=== PATIENT | male | born 1980 | race Caucasian/White ===

== ENCOUNTER 2020-12-10 21:49 | Inpatient (IN) | payer MEDICAID, SELFPAY ==
[~2020-12-10] VITALS: Ht 170.2 cm; Wt 86.2 kg
[2020-12-10 21:50] VITALS: BP 106/88
--- NOTE | 2020-12-10 21:50 | NUR ---
RAPID RESPONSE INITIATED, ERMD AT BEDSIDE WITH EMT, RT, AND PRIMARY NURSE. NARCAN GIVEN VIA IVP 2MG, ACCUCHECK 139.
--- NOTE | 2020-12-10 21:50 | NUR ---
PATIENT TAKEN TO BED 5 VIA GURNEY.
[2020-12-10] MEDS ORDERED: INTUBATION KIT MC ONE (21:53)
--- NOTE | 2020-12-10 21:55 | NUR ---
40 YO/M BIB friend, unresponsive, AOX0, GCS3 no response to painful stimuli. Patient is PERRL. Patient present tachycardic, pulse present +2, breathing shallow, labored, bradypnea, lung sounds clear, chest expansion symmetrical. Bowel sounds present. No wounds noted. ERMD, and ALPINE PATROLLER at bedside for patient care. PMH: unable to obtain Allergies: unable to obtain
[2020-12-10] MEDS ORDERED: LORazepam 2 MG/ML VIAL ONE (21:59)
[2020-12-10] MEDS ORDERED: fentaNYL citrate 0.05 MG/ML VIAL ONE (22:00)
[2020-12-10] MEDS ORDERED: PROPOFOL 1000 MG/100 ML PREMIX 100 ML IV ONE ×2 (22:01→22:25)
[2020-12-10] MEDS ORDERED: NALOXONE PFS 2 MG/2 ML SYR IVP ONE ×2 (22:15)
[2020-12-10] MEDS ORDERED: NACL 0.9% 1,000 ML IV ONE (22:15)
[2020-12-10] MEDS ORDERED: fentaNYL citrate 0.05 MG/ML VIAL IVP ONE (22:25)
[2020-12-10] MEDS ORDERED: LORazepam 2 MG/ML VIAL IVP ONE (22:25)
--- NOTE | 2020-12-10 22:42 | NUR ---
PATIENT RETURNED FROM CT VIA GURNEY. RT AT BEDSIDE.
[2020-12-10 23:10] VITALS: BP 107/63
[2020-12-10 23:17] LABS: BASOPHILS % (AUTO) 0.4 % (0.0-2.0); EOSINOPHILS # (AUTO) 0.1 K/uL (0-0.4); HEMATOCRIT 46.4 % (36-52); HEMOGLOBIN 15.3 g/dL (12.0-18.0); LYMPHOCYTES % (AUTO) 43.4 % (20.5-51.1); MEAN CORPUSCULAR HEMOGLOBIN 29 pg (27-31); MEAN CORPUSCULAR HGB CONC 33 g/dL (33-37); MEAN CORPUSCULAR VOLUME 89.2 fL (80-94); MONOCYTES # (AUTO) 0.6 K/uL (0.8-1.0); MONOCYTES % (AUTO) 6.8 % (1.7-9.3); NEUTROPHILS # (AUTO) 4.4 K/uL (1.8-7.7); NEUTROPHILS % (AUTO) 48.4 % (42.2-75.2); PLATELET COUNT (AUTO) 295 K/uL (140-450); RED CELL DISTRIBUTION WIDTH 13.5 % (11.6-13.7); WHITE BLOOD COUNT (AUTO) 9.2 K/uL (4.8-10.8)
[2020-12-10 23:29] LABS: BARBITURATE, URINE NEGATIVE ng/ml (NEG <=200); BENZODIAZEPINE, URINE NEGATIVE ng/mL (NEG <=200); CANNABINOID, URINE NEGATIVE ng/mL (NEG <=50); COCAINE, URINE POSITIVE ng/mL (NEG <=300); OPIATE, URINE NEGATIVE ng/mL (NEG <=2000); PHENCYCLIDINE SCREEN,URINE NEGATIVE ng/mL (NEG <=25)
[2020-12-10 23:31] LABS: ACETAMINOPHEN 1.2 ug/ml (10-30)
[2020-12-10 23:33] LABS: ALBUMIN 3.7 g/dL (3.4-5.0); ANION GAP 14.7 (8-16); CREATININE 1.3 mg/dL (0.6-1.3); POTASSIUM 3.7 mmol/L (3.5-5.1); SALICYLATE < 2.8 mg/dL (2.8-20.0); TOTAL BILIRUBIN 0.5 mg/dL (0.0-1.0)
--- NOTE | 2020-12-10 23:43 | NUR ---
UNABLE TO COLLECT SPUTUM SAMPLE AT THIS TIME. PT HAS NO SECRETIONS
[2020-12-11] VITALS (36 sets, daily range): BP systolic 100–144; BP diastolic 49–83
--- NOTE | 2020-12-11 00:15 | NUR ---
Patient laying in bed, locked in lowest position, x2 side rails up for patient safety. VSS. Daughter at bedside.
[2020-12-11] MEDS ORDERED: ONDANSETRON 4 MG/2 ML VIAL IM/IVP PRN (00:30)
[2020-12-11] MEDS ORDERED: DOCUSATE SODIUM 100 MG GELCAP PO PRN (00:30)
[2020-12-11] MEDS ORDERED: MAG SULF 2000 MG/WATER PREMIX 50 ML IV PRN (00:30)
[2020-12-11] MEDS ORDERED: LORazepam 2 MG/ML VIAL IM/IVP PRN (00:30)
[2020-12-11] MEDS ORDERED: ACETAMINOPHEN 325 MG TAB PO PRN (00:30)
[2020-12-11] MEDS ORDERED: POTASSIUM CHLORIDE 40 MEQ, LIDOCAINE MPF 1% 25 MG in NACL 0.9% 250 ML IV PRN (00:30)
[2020-12-11] MEDS ORDERED: MORPHINE SULFATE 2 MG/ML SYR IVP PRN (00:30)
[2020-12-11] MEDS ORDERED: SODIUM PHOS / POTASSIUM PHOS 1 PKT PDR PO PRN (00:30)
[2020-12-11 01:13] LABS: MAGNESIUM 2.3 mg/dL (1.8-2.4); PHOSPHORUS 5.5 mg/dL (2.5-4.9)
[2020-12-11] MEDS: PANTOPRAZOLE 40 MG INJ VIAL IVP SCH ×2 (02:03→09:43)
[2020-12-11] MEDS: NACL 0.9% 1,000 ML IV SCH ×2 (03:35→17:15)
--- NOTE | 2020-12-11 04:12 | NUR ---
Nallely sample collected from NARES and sent to lab.
--- NOTE | 2020-12-11 07:09 | NUR ---
Report called to CHARISMA Galicia for transfer of care to ICU.
--- NOTE | 2020-12-11 07:10 | NUR ---
Report given to CHARISMA Yin for transfer of care.
--- NOTE | 2020-12-11 08:09 | NUR ---
Patient will be admitted to care of KENIA GATES. Admited to ICU. Will go to room 01. Belongings list completed. Report to AMAYA.
--- NOTE | 2020-12-11 08:10 | NUR ---
PRIOR TO PATIENT ARRIVAL, RECEIVED REPORT FROM ED NURSE. PT RESTING IN BED. RASS -3. PT VENTED WITH ETT AT 7.5CM. FIO2 AT 28%, R 14, TV 500, PEEP 5. RESPIRATIONS EVEN AND UNLABORED WITH NO SOB OR RESPIRATORY DISTRESS. SKIN WARM AND DRY TO TOUCH. IV SITES IN RAC 18G, LAC 20G, AND L HAND 20G SALINE LOCKED IS CLEAN, DRY AND INTACT. AC 18G IS INFUSING PROP AT 25MCG AND LAC 20G IS INFUSING NS AT 60ML. PT HAS WARREN DRAINING VIA GRAVITY. OGTUBE IN PLACE. MRSA SWAB COLLECTED AND SENT TO LAB. VITAL SIGNS OBTAINED. SAFETY MEASURES IN PLACE. WILL CONTINUE TO MONITOR
--- NOTE | 2020-12-11 08:12 | NUR ---
patient transferred to icu from ed - pt tolerated well, no distress noted, pt remained on vent throughout transfer and into icu.
[2020-12-11 08:25] LABS: BASOPHILS % (AUTO) 0.3 % (0.0-2.0); EOSINOPHILS # (AUTO) 0.1 K/uL (0-0.4); HEMATOCRIT 43.3 % (36-52); HEMOGLOBIN 14.5 g/dL (12.0-18.0); LYMPHOCYTES # (AUTO) 3.1 K/uL (2.0-11.5); LYMPHOCYTES % (AUTO) 28.7 % (20.5-51.1); MEAN CORPUSCULAR HEMOGLOBIN 30 pg (27-31); MEAN CORPUSCULAR HGB CONC 34 g/dL (33-37); MEAN CORPUSCULAR VOLUME 87.8 fL (80-94); MONOCYTES # (AUTO) 0.7 K/uL (0.8-1.0); PLATELET COUNT (AUTO) 254 K/uL (140-450); RED BLOOD CELL COUNT(AUTO) 4.93 MIL/uL (4.20-6.10); WHITE BLOOD COUNT (AUTO) 10.9 K/uL (4.8-10.8)
[2020-12-11 08:36] LABS: ANION GAP 7.4 (8-16); CARBON DIOXIDE 27.9 mmol/L (21-32); CREATININE 1.1 mg/dL (0.6-1.3); POTASSIUM 4.3 mmol/L (3.5-5.1)
[2020-12-11] MEDS ORDERED: PROPOFOL 1000 MG/100 ML PREMIX 100 ML IV PRN (09:00)
[2020-12-11] MEDS ORDERED: chlordiazePOXIDE 25 MG CAP GT SCH (09:00)
--- NOTE | 2020-12-11 09:00 | NUR ---
PT DAUGHTERS AT BEDSIDE. HISTORY OBTAINED VIA YENNY. DAUGHTERS UPDATED ON PATIENT CONDITION. SAFETY MEASURES IN PLACE. WILL CONTINUE TO MONITOR
[2020-12-11] MEDS: MULTIVITAMIN 1 TAB GT SCH (09:42)
[2020-12-11] MEDS: THIAMINE 100 MG TAB GT SCH (09:43)
[2020-12-11] MEDS: FOLIC ACID 1 MG TAB GT SCH (09:46)
[2020-12-11] MEDS ORDERED: HALOPERIDOL IM 5 MG/ML VIAL IM PRN (09:55)
--- NOTE | 2020-12-11 10:01 | NUR ---
DR. REES AT BEDSIDE ASSESSING PATIENT
[2020-12-11] MEDS ORDERED: DEXMEDETOMIDINE HCL 400 MCG in NACL 0.9% 96 ML IV PRN (10:15)
--- NOTE | 2020-12-11 10:46 | NUR ---
PATIENT HAS BEEN SCREENED AND CATEGORIZED MODERATE NUTRITION RISK. PATIENT WILL BE SEEN WITHIN 3-5 DAYS OF ADMISSION. 12/13/20-12/15/20 SHERRIE SALVADOR MS, RDN Addendum: 12/11/20 at [address] DISREGARD PREVIOUS NOTE PATIENT HAS BEEN SCREENED AND CATEGORIZED HIGH NUTRITION RISK. PATIENT WILL BE SEEN WITHIN 1-2 DAYS OF ADMISSION. 12/11/20-12/13/20 SHERRIE SALVADOR MS, RDN
--- NOTE | 2020-12-11 13:15 | NUR ---
DAUGHTER CALLED AND WANTED UPDATE. UPDATE GIVEN. WILL CONTINUE TO MONITOR
--- NOTE | 2020-12-11 14:35 | NUR ---
PATIENT RESTING IN BED. NO SIGNS OF DISTRESS AT THIS TIME. PT ON 4L NC SATURATING AT 94%. SAFETY MEASURES IN PLACE. WILL CONTINUE TO MONITOR
--- NOTE | 2020-12-11 14:45 | NUR ---
DR. ASHLEY AT BEDSIDE ASSESSING PATIENT. ORDERS RECEIVED. SAFETY MEASURES IN PLACE. WILL CONTINUE TO MONITOR
--- NOTE | 2020-12-11 15:30 | NUR ---
DAUGHTER YENNY CALLED AND WANTED AN UPDATE. UPDATE GIVEN. PER YENNY, HER CORRECT PHONE NUMBER IS [phone]. SAFETY MEASURES IN PLACE. WILL CONTINUE TO MONITOR
--- NOTE | 2020-12-11 16:07 | NUR ---
DAUGHTERS AT BEDSIDE VISITING PATIENT. SAFETY MEASURES IN PLACE. WILL CONTINUE TO MONITOR
--- NOTE | 2020-12-11 17:16 | NUR ---
ADMINISTERED SCHED MED PRESCRIBED PER MD ORDER. PT TOLERATED WELL. SAFETY MEASURES IN PLACE. WILL CONTINUE TO MONITOR
--- NOTE | 2020-12-11 18:05 | NUR ---
PT DOWNGRADED FROM ICU TO TELE. NO SIGNS OF DISTRESS. WILL CONTINUE TO MONITOR
--- NOTE | 2020-12-11 19:15 | NUR ---
ENDORSED AT BEDSIDE TO NIGHTSHIFT FOR CONTINUITY OF CARE
--- NOTE | 2020-12-11 20:00 | NUR ---
RECEIVED REPORT FROM DAY RN REGARDING THE PATIENT FOR CONTINUITY OF CARE. RECEIVED PT ASLEEP BUT EASY TO AROUSE. FAMILY AT THE BEDSIDE. NOT IN ANY DISTRESS AND NO COMPLAIN AT THIS TIME. IVF INFUSING ORDERED. FALL PRECAUTION IMPLEMENTED. INSTRUCTED TO CALL FOR ASSISTANCE AT ALL TIMES. PT VERBALIZED UNDERSTANDING WITH THE POC.CALL LIGHT WITHIN REACH. WILL CONTINUE POC AND MONITORING.
--- NOTE | 2020-12-11 22:00 | NUR ---
PATIENT SLEEPING AT THIS TIME. NOT IN ANY DISTRESS AND NO COMPLAIN. WILL CONTINUE TO MONITOR THE PT.
[2020-12-12] VITALS: BP 111/61
--- NOTE | 2020-12-12 | NUR ---
PATIENTS VITAL SIGNS STABLE, AFEBRILE, SATING 97% ON 3L/NC. SINUS RHYTHM ON ORCHARD SPRAYER, HR-84. NO COMPLAIN OF PAIN AT THIS TIME. CALL LIGHT WITHIN REACH.
--- NOTE | 2020-12-12 02:00 | NUR ---
PATIENT SLEEPING AT THIS TIME. NOT IN ANY DISTRESS AND NO COMPLAIN. WILL CONTINUE TO MONITOR THE PT.
[2020-12-12 04:00] VITALS: BP 105/55
--- NOTE | 2020-12-12 04:00 | NUR ---
PATIENT VITAL SIGNS STABLE, AFEBRILE, SATING 99% ON 2L/NC. NO COMPLAIN OF PAIN AT THIS TIME. SR ON PRECISION AIRCRAFT STRUCTURE ASSEMBLER, HR-77. CALL LIGHT WITHIN REACH.
--- NOTE | 2020-12-12 06:28 | NUR ---
PATIENT STABLE. NO ACUTE EVENT THROUGHOUT THE NIGHT. NO COMPLAIN AT THIS TIME. NOT IN ANY DISTRESS. ALL NEEDS ATTENDED. WILL ENDORSE THE PATIENT TO THE ONCOMING RN FOR CONTINUITY OF CARE. CALL LIGHT WITHIN REACH.
[2020-12-12 06:39] LABS: BASOPHILS % (AUTO) 0.2 % (0.0-2.0); EOSINOPHILS % (AUTO) 0.1 % (0.0-4.0); HEMATOCRIT 42.5 % (36-52); HEMOGLOBIN 14.2 g/dL (12.0-18.0); LYMPHOCYTES # (AUTO) 1.3 K/uL (2.0-11.5); LYMPHOCYTES % (AUTO) 10.9 % (20.5-51.1); MEAN CORPUSCULAR HEMOGLOBIN 30 pg (27-31); MEAN CORPUSCULAR HGB CONC 33 g/dL (33-37); MEAN CORPUSCULAR VOLUME 88.1 fL (80-94); MONOCYTES # (AUTO) 0.8 K/uL (0.8-1.0); MONOCYTES % (AUTO) 6.4 % (1.7-9.3); NEUTROPHILS % (AUTO) 82.4 % (42.2-75.2); PLATELET COUNT (AUTO) 247 K/uL (140-450); RED BLOOD CELL COUNT(AUTO) 4.82 MIL/uL (4.20-6.10); RED CELL DISTRIBUTION WIDTH 13.7 % (11.6-13.7); WHITE BLOOD COUNT (AUTO) 12.1 K/uL (4.8-10.8)
[2020-12-12 06:49] LABS: ANION GAP 9.9 (8-16); CARBON DIOXIDE 25.6 mmol/L (21-32); CREATININE 0.9 mg/dL (0.6-1.3); POTASSIUM 4.5 mmol/L (3.5-5.1)
[2020-12-12 06:55] LABS: MAGNESIUM 1.9 mg/dL (1.8-2.4); PHOSPHORUS 2.9 mg/dL (2.5-4.9)
--- NOTE | 2020-12-12 07:14 | NUR ---
ENDORSED PATIENT TO DAY CHARISMA CONDE FOR CONTINUITY OF CARE. PATIENT STABLE. SIGNING OFF.
--- NOTE | 2020-12-12 07:19 | NUR ---
RECEIVED BEDSIDE REPORT FROM NIGHTSHIFT NURSE. PT RESTING IN BED, ABLE TO MAKE NEEDS KNOWN. RESPIRATIONS EVEN AND UNLABORED WITH NO SOB OR RESPIRATORY DISTRESS. SKIN WARM AND DRY TO TOUCH. SAFETY MEASURES IN PLACE, WILL CONTINUE TO MONITOR
[2020-12-12 08:00] VITALS: BP 102/54
[2020-12-12] MEDS: FOLIC ACID 1 MG TAB GT SCH (08:51)
[2020-12-12] MEDS: PANTOPRAZOLE 40 MG INJ VIAL IVP SCH (08:52)
[2020-12-12] MEDS: THIAMINE 100 MG TAB GT SCH (08:52)
[2020-12-12] MEDS: MULTIVITAMIN 1 TAB GT SCH (08:52)
[2020-12-12] MEDS: NACL 0.9% 1,000 ML IV SCH (09:02)
--- NOTE | 2020-12-12 09:02 | NUR ---
ADMINISTERED SCHED MEDS PRESCRIBED PER MD ORDER. PT TOLERATED WELL. SAFETY MEASURES IN PLACE. WILL CONTINUE TO MONITOR
--- NOTE | 2020-12-12 10:45 | NUR ---
PT ASLEEP IN BED. RESPONSIVE TO VERBAL AND TACTILE STIMULI. NO SIGNS OF DISTRESS. SAFETY MEASURES IN PLACE. WILL CONTINUE TO MONITOR
[2020-12-12 12:00] VITALS: BP 114/60
--- NOTE | 2020-12-12 12:04 | NUR ---
VITAL SIGNS OBTAINED. PT STABLE AT THIS TIME. GF AT BEDSIDE. SAFETY MEASURES IN PLACE. WILL CONTINUE TO MONITOR
--- NOTE | 2020-12-12 14:05 | NUR ---
PT RESTING IN BED. WITH DAUGHTERS AT BEDSIDE. NO SIGNS OF DISTRESS AT THIS TIME. SAFETY MEASURES IN PLACE. WILL CONTINUE TO MONITOR
--- NOTE | 2020-12-12 15:45 | NUR ---
PT ACCIDENTLY PULLED OUT INTACT IV IN R HAND 20G AND RAC 18G WHEN TURNING IN BED AND REPOSITIONING SELF. PT HAS LAC 20G DRY, INTACT, AND CLEAN. SAFETY MEASURES IN PLACE. WILL CONTINUE TO MONITOR
[2020-12-12 16:00] VITALS: BP 99/57
[2020-12-12] MEDS: chlordiazePOXIDE 25 MG CAP PO SCH (17:00)
--- NOTE | 2020-12-12 17:12 | NUR ---
PT ASLEEP IN BED. RESPONSIVE TO VERBAL AND TACTILE STIMULI. NO SIGNS OF DISTRESS. SAFETY MEASURES IN PLACE. WILL CONTINUE TO MONITOR
--- NOTE | 2020-12-12 19:35 | NUR ---
ENDORSED TO NIGHTSHIFT NURSE AT BEDSIDE FOR CONTINUITY OF CARE.
[2020-12-12 20:07] VITALS: BP 107/66
--- NOTE | 2020-12-12 20:10 | NUR ---
RECEIVED REPORT OF PT IN STABLE CONDITION.RESP.UNLABORED W/1L O2/NC.IVF INFUSING WELL.CALL LIGHT WITHIN REACH.FAMILY AT BEDSIDE.DENIED ANY PAIN AND/OR DISCOMFORT.F/C PATENT AND DRAINING YELLOW COLOR URINE.WILL CONTINUE MONITORING.
--- NOTE | 2020-12-12 20:25 | NUR ---
REPORT GIVEN TO Lis ZAFAR.PT'S CONDITION IS STABLE.
--- NOTE | 2020-12-12 20:30 | NUR ---
ASSUMED CARE OF THE PATIENT FROM CHARISMA AGUILAR. PATIENT ASLEEP BUT EASY TO AROUSE AND AT THE BEDSIDE. NOT IN ANY DISTRESS OR PAIN AT THIS TIME. INSTRUCTED TO CALL IF HE NEEDS ANYTHING AND VERBALIZED UNDERSTANDING. CALL LIGHT WITHIN REACH. WILL CONTINUE POC.
--- NOTE | 2020-12-12 22:37 | NUR ---
PATIENT IV ON THE LEFT FOREARM CAME OUT ACCIDENTALLY PER PATIENT WHO IS AT THE BEDSIDE. DC/D IV, CANNULA INTACT. NO HEMATOMA OR FURTHER BLEEDING NOTED. TRIED TO PLACE A NEW IV TWICE BUT PATIENT VEIN KEEPS ON COLLAPSING DESPITE GOOD BLOOD RETURN. PATIENT REFUSED TO PLACE AN IV AND STATED HE DOESN'T NEED IT. EXPLAINED TO THE PATIENT THE IMPORTANCE OF HAVING AN IV IN CASE OF EMERGENCY BUT STILL REFUSED. WILL TRY AGAIN LATER.
[2020-12-13] VITALS: BP 112/75
--- NOTE | 2020-12-13 | NUR ---
PATIENT VITAL SIGNS STABLE, AFEBRILE, SATING 95% ON RA. SINUS ARRHYTHMIA ON TELE MONITOR, HR-70. NO COMPLAIN OF ANY PAIN. AT THE BEDSIDE. CALL LIGHT WITHIN REACH.
--- NOTE | 2020-12-13 02:00 | NUR ---
PATIENT ASLEEP AT THIS TIME. VISIBLE CHEST RISE AND FALL NOTED. NO COMPLAIN AND NOT IN DISTRESS AT THIS TIME. SAFETY MEASURES IN PLACED.
[2020-12-13] MEDS: NACL 0.9% 1,000 ML IV SCH (02:30)
[2020-12-13 04:00] VITALS: BP 119/72
--- NOTE | 2020-12-13 04:35 | NUR ---
PATIENTS VITALS SIGNS STABLE, AFEBRILE, SATING 96% ON RA. NO COMPLAIN OF PAIN AND NOT IN ANY DISTRESS. PATIENT REQUESTING TO DC HIS WARREN CATHETER. CALLED DR AQUINO AND MADE AWARE OF THE PATIENT REQUEST. AWAITING FOR MD TO CALL BACK OR RESPOND.
[2020-12-13 05:14] LABS: BASOPHILS % (AUTO) 0.2 % (0.0-2.0); EOSINOPHILS # (AUTO) 0.1 K/uL (0-0.4); EOSINOPHILS % (AUTO) 1.5 % (0.0-4.0); HEMATOCRIT 43.9 % (36-52); HEMOGLOBIN 14.8 g/dL (12.0-18.0); LYMPHOCYTES # (AUTO) 1.8 K/uL (2.0-11.5); LYMPHOCYTES % (AUTO) 18.7 % (20.5-51.1); MEAN CORPUSCULAR HEMOGLOBIN 30 pg (27-31); MEAN CORPUSCULAR HGB CONC 34 g/dL (33-37); MEAN CORPUSCULAR VOLUME 87.4 fL (80-94); MONOCYTES # (AUTO) 0.7 K/uL (0.8-1.0); MONOCYTES % (AUTO) 7.1 % (1.7-9.3); NEUTROPHILS % (AUTO) 72.5 % (42.2-75.2); PLATELET COUNT (AUTO) 269 K/uL (140-450); RED BLOOD CELL COUNT(AUTO) 5.03 MIL/uL (4.20-6.10); RED CELL DISTRIBUTION WIDTH 13.6 % (11.6-13.7); WHITE BLOOD COUNT (AUTO) 9.7 K/uL (4.8-10.8)
[2020-12-13 05:29] LABS: ANION GAP 10.1 (8-16); CARBON DIOXIDE 27.9 mmol/L (21-32); CREATININE 0.8 mg/dL (0.6-1.3)
--- NOTE | 2020-12-13 06:35 | NUR ---
PATIENT ASLEEP AT THIS TIME. STILL AT THE BEDSIDE. NO COMPLAIN AT THIS TIME. NOT IN ANY DISTRESS.
[2020-12-13 08:00] VITALS: BP 109/71
[2020-12-13] MEDS: chlordiazePOXIDE 25 MG CAP PO SCH (08:56)
[2020-12-13] MEDS ORDERED: FOLIC ACID 1 MG TAB PO SCH (09:00)
[2020-12-13] MEDS ORDERED: THIAMINE 100 MG TAB PO SCH (09:00)
[2020-12-13] MEDS ORDERED: MULTIVITAMIN 1 TAB PO SCH (09:00)
[2020-12-13] MEDS ORDERED: PANTOPRAZOLE 40 MG TABEC PO SCH (09:00)
--- NOTE | 2020-12-13 09:00 | NUR ---
Dr Thomas came and seen the patient . also dc/d the patient donnelly and instructed me to wait until the patient void first before discharging the patient home.
--- NOTE | 2020-12-13 09:26 | NUR ---
(12/13/20) RD INITIAL ASSESSMENT COMPLETED PLEASE REFER TO NUTRITION ASSESSMENT UNDER CARE ACTIVITY FOR ESTIMATED NUTRITIONAL NEEDS. RD RECOMMENDATIONS: 1. CONTINUE ON REGULAR DIET. 2. CONSULT RDN PRN. 3. RD WILL F/U 5-7 DAYS; LOW RISK. DAISY SALVADOR MS, RDN
[2020-12-13] MEDS ORDERED: MULT-405 PO (09:57)
[2020-12-13] MEDS ORDERED: FOLI1TAB90 PO (09:57)
[2020-12-13] MEDS ORDERED: THIA-34 PO (09:57)
[2020-12-13] MEDS ORDERED: ONDA4TAB PO (09:57)
--- NOTE | 2020-12-13 10:08 | NUR ---
Administered all the scheduled medications and education provided regarding the medication. Patient tolerated it well . No adverse drug reaction noted and no complain from the patient. Will continue to observe.
--- NOTE | 2020-12-13 10:16 | NUR ---
PATIENT ALREADY VOIDED IN THE BATHROOM PER PATIENT . NO COMPLAIN OF PAIN AND DIFFICULTY OF URINATING FROM THE PATIENT. WILL PREPARE THE PATIENT FOR DISCHARGE.
[2020-12-13 11:00] VITALS: BP 118/75
--- NOTE | 2020-12-13 11:00 | NUR ---
DISCHARGED THE PATIENT HOME ORDERED. DISCHARGE INSTRUCTIONS GIVEN TO THE PATIENT AND VERBALIZED UNDERSTANDING. 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 PATIENT LEFT THE UNIT IN STABLE CONDITION A/A/OX4,AMBULATORY, ACCOMPANIED BY HIS AND 2 DAUGHTER. VSS UPON DISCHARGE. PATIENT HAS NO IV. PT WAS LOOKING FOR HIS DRIVERS LICENSE BUT UNABLE TO LOCATE. CALLED SECURITY AND ALSO ER ADMISSION AND NONE OF THEM FOUND IT.
== END 2020-12-13 11:05 | disposition home or self-care (01) | DRG 816 ==
LOC: MED 21:49 → MTU 12-11 00:52 → MIC 12-11 07:26 → MTU 12-11 18:26
PROVIDERS: ADMIT Hospitalist; ATTEND Hospitalist
PROC: 5A1935Z Respiratory Ventilation, Less than 24 Consecutive Hours (ICD-10-PCS; principal; 2020-12-11)
PROC: 0BH17EZ Insertion of Endotracheal Airway into Trachea, Via Natural or Artificial Opening (ICD-10-PCS; 2020-12-11)
DX: T40.5X1A Poisoning by cocaine, accidental (unintentional), initial encounter (principal); J96.00 Acute respiratory failure, unspecified whether with hypoxia or hypercapnia; G92 Toxic encephalopathy; E83.39 Other disorders of phosphorus metabolism; E87.1 Hypo-osmolality and hyponatremia; E87.2 Acidosis; J98.11 Atelectasis; F10.120 Alcohol abuse with intoxication, uncomplicated; Z20.822 Contact with and (suspected) exposure to COVID-19; Y90.6 Blood alcohol level of 120-199 mg/100 ml; F14.10 Cocaine abuse, uncomplicated; Y92.89 Other specified places as the place of occurrence of the external cause; Z71.41 Alcohol abuse counseling and surveillance of alcoholic; Z71.51 Drug abuse counseling and surveillance of drug abuser
CPT/HCPCS: 31500; 36415; 36600; 51702; 70450; 71045; 72125; 80048; 80053; 80305; 82803; 83605; 83735; 83880; 84100; 84484; 85025; 87070; 87081; 87186; 87205; 89220; 94002; 96374; 96375; 99291; C9113; G0480; G0482; J2060; J2310; J2704; J3010

== ENCOUNTER 2023-01-21 14:53 | Emergency (ER) | payer SELFPAY ==
[~2023-01-21] VITALS: Ht 180.3 cm; Wt 74.8 kg
[~2023-01-21 14:53] MED LIST: FOLI1TAB90 PO; MULT-405 PO; ONDA4TAB PO; THIA-34 PO
[2023-01-21 14:58] VITALS: BP 140/94; PULSE 98; RESP 16; TEMP 97.2; O2SAT 96
[2023-01-21] MEDS ORDERED: MORPHINE SULFATE 4 MG/ML SYR IVP ONE (15:05)
[2023-01-21] MEDS ORDERED: KETOROLAC 30 MG/ML VIAL IVP ONE (15:05)
[2023-01-21] MEDS ORDERED: LIDOCAINE MPF 1% 10 MG/ML VIAL INJ ONE (15:05)
[2023-01-21] MEDS ORDERED: ceFAZolin 1,000 MG VIAL ONE (15:26)
[2023-01-21] MEDS ORDERED: IBUP-2213 PO (16:31)
[2023-01-21] MEDS ORDERED: ACET-10509 PO (16:31)
[2023-01-21] MEDS ORDERED: BEN10 PO (16:31)
[2023-01-21 16:54] VITALS: BP 129/81; PULSE 97; RESP 18; TEMP 98; O2SAT 98
== END 2023-01-21 16:53 | disposition home or self-care (01) ==
LOC: MED 14:53
DX: S68.121A Partial traumatic metacarpophalangeal amputation of left index finger, initial encounter (principal); W23.0XXA Caught, crushed, jammed, or pinched between moving objects, initial encounter; Y93.89 Activity, other specified; Y92.89 Other specified places as the place of occurrence of the external cause; Y99.8 Other external cause status
CPT/HCPCS: 26951; 73130; 90471; 90715; 96365; 96375; 99284; J0690; J1885; J2001; J2270; Q0092